=== PATIENT | male | born 1940 | race Two or more races ===

== ENCOUNTER 2017-01-05 11:55 | Inpatient (IN) | payer MEDICAID ==
[~2017-01-05] VITALS: Ht 180.3 cm; Wt 81.7 kg
[~2017-01-05 11:55] MED LIST: HYDR5CAP; LISI10TA6
[2017-01-05] MEDS ORDERED: SODIUM CHLORIDE 0.9% 1,000 ML IVB ONE (12:34)
[2017-01-05 12:53] LABS: Basophils # (auto) 0 uL; Basophils % (auto) 0.3 % (0.0-2.0); Eosinophils # (auto) 0.3 uL; Eosinophils % (auto) 4.3 % (0.0-7.0); Hematocrit 43.3 % (41.0-53.0); Hemoglobin 14.1 g/dL (13.5-17.5); Lymphocytes # (auto) 1.4 uL; Lymphocytes % (auto) 21.9 % (10.0-50.0); Mean Corpuscular Hgb Conc. 32.5 g/dL (32.0-36.0); Mean Platelet Volume 9.3 fL (7.4-10.4); Monocytes # (auto) 0.5 uL; Monocytes % (auto) 8.7 % (0.0-12.0); Neutrophils % (auto) 64.8 % (37.0-80.0); Platelet Count (auto) 243 10^3/uL (140-450); Red Cell Distribution Width 13.4 % (11.6-16.0); White Blood Cell 6.3 10^3/uL (4.4-10.8)
[2017-01-05 13:02] LABS: Albumin 3.2 g/dL (3.4-5.0); Alkaline Phosphatase 53 U/L (45-117); Anion Gap 8 (5-15); Aspartate Aminotransferase 11 U/L (15-37); Bilirubin, Total 0.8 mg/dL (0.2-1.0); Blood Urea Nitrogen 19 mg/dL (7-18); Carbon Dioxide 26 mmol/L (21-32); Chloride 109 mmol/L (98-107); GFR African American 76 mL/min; GFR Non-African American 63 mL/min; Glucose 163 mg/dL (74-106); Magnesium 2.4 mg/dL (1.6-2.6); Potassium 3.7 mmol/L (3.5-5.1); Sodium 143 mmol/L (136-145); Total Protein 6.3 g/dL (6.4-8.2)
[2017-01-05 13:33] LABS: Partial Thromboplastin Time 27.4 sec (22.64-33.71); Prothrombin Time 10.8 sec (9.37-12.3)
[2017-01-05] MEDS ORDERED: DEXTROSE (50%) 50ML SYRG IV PRN (15:00)
[2017-01-05] MEDS ORDERED: MORPHINE SULF INJ 2 MG/ML SYRINGE 1ML IV PRN ×2 (15:00)
[2017-01-05] MEDS ORDERED: TEMAZEPAM 15 MG CAP PO PRN (15:00)
[2017-01-05] MEDS ORDERED: ACETAMINOPHEN 500 MG TAB PO PRN (15:00)
[2017-01-05] MEDS ORDERED: PROMETHAZINE HCL 25 MG/ML 1ML IV PRN (15:00)
[2017-01-05] MEDS ORDERED: HYDROcodone-ACET 5/325MG TAB PO PRN (15:00)
[2017-01-05] MEDS ORDERED: LACTULOSE 20Gm/30ML SOLN PO PRN (15:00)
[2017-01-05] MEDS ORDERED: LORazepam 0.5 MG TAB PO PRN (15:00)
[2017-01-05] MEDS ORDERED: NITROGLYCERIN 0.4 MG SL TAB SL PRN (15:00)
[2017-01-05] MEDS ORDERED: PANTOPRAZOLE 40 MG TAB PO ONE (15:15)
[2017-01-05] MEDS ORDERED: ASPirin 81 mg TAB PO ONE (15:15)
[2017-01-05] MEDS ORDERED: LISINOPRIL 10 MG TAB PO ONE (15:15)
[2017-01-05] MEDS ORDERED: HCTZ25T PO (15:49)
[2017-01-05] MEDS ORDERED: ASPI-231 PO (15:49)
[2017-01-05] MEDS ORDERED: GABA-339 PO (15:49)
[2017-01-05] MEDS ORDERED: DOCU100T15 PO (15:49)
[2017-01-05] MEDS ORDERED: HYDR-4069 PO (15:49)
[2017-01-05] MEDS ORDERED: CHOL100039 PO (15:49)
[2017-01-05] MEDS ORDERED: AML5T PO (15:49)
[2017-01-05] MEDS ORDERED: LOSA50TA6 PO (15:49)
[2017-01-05 16:36] LABS: Temperature: 23.7 C (20.0-25.0)
[2017-01-05] MEDS ORDERED: LORazepam 2MG/ML-1ML VIAL IV PRN (17:00)
[2017-01-05] MEDS: ENOXAPARIN SOD 40 MG/0.4 ML SYRINGE SC SCH (17:07)
[2017-01-05] MEDS: ACCU-CHEK COMFORT CURVE STRIP VI SCH (18:33)
[2017-01-05 20:13] VITALS: BP 148/60
[2017-01-05 21:30] LABS: Urine Bilirubin Negative (Negative); Urine Blood Negative /uL (Negative); Urine Color Yellow (Yellow); Urine Glucose Normal (Normal); Urine Hyaline Cast MOD /lpf (0 - 2); Urine Ketone Negative (Negative); Urine Mucus FEW (None Seen); Urine Nitrite Negative (Negative); Urine RBC <1 /hpf (0 - 3); Urine Squamous Epithelial Cell FEW /hpf (<5)
[2017-01-05] MEDS: ATORVASTATIN 20 MG TAB PO SCH (22:24)
[2017-01-05 23:05] VITALS: BP 148/60
[2017-01-06 05:12] VITALS: BP 135/66
[2017-01-06 06:08] LABS: Cholesterol 111 mg/dL (< 200); HDL Cholesterol 35 mg/dL (40-59); LDL Cholesterol 74 mg/dL (< 100); Triglycerides 95 mg/dL (< 150)
[2017-01-06] MEDS: ACCU-CHEK COMFORT CURVE STRIP VI SCH ×4 (06:27→18:02)
[2017-01-06] MEDS: LISINOPRIL 10 MG TAB PO SCH (06:28)
[2017-01-06 08:00] VITALS: BP 151/66
[2017-01-06] MEDS: ASPirin 81 mg TAB PO SCH (09:04)
[2017-01-06] MEDS: ENOXAPARIN SOD 40 MG/0.4 ML SYRINGE SC SCH (09:04)
[2017-01-06] MEDS: PANTOPRAZOLE 40 MG TAB PO SCH (09:04)
[2017-01-06 13:00] VITALS: BP 158/69
[2017-01-06 17:00] VITALS: BP 158/78
[2017-01-06] MEDS ORDERED: IOHEXOL 350 MG/ML 100ML IJ ONE (17:37)
[2017-01-06 21:30] VITALS: BP_SYST 146; BP_SYST 152; BP_SYST 156; BP_DIAS 63; BP_DIAS 71; BP_DIAS 74
[2017-01-06] MEDS: ATORVASTATIN 20 MG TAB PO SCH (21:52)
[2017-01-07] VITALS (7 sets, daily range): BP systolic 132–181; BP diastolic 60–67
[2017-01-07] MEDS: ACCU-CHEK COMFORT CURVE STRIP VI SCH ×3 (00:23→11:17)
[2017-01-07] MEDS: LISINOPRIL 10 MG TAB PO SCH (06:14)
[2017-01-07] MEDS: ENOXAPARIN SOD 40 MG/0.4 ML SYRINGE SC SCH (09:40)
[2017-01-07] MEDS: ASPirin 81 mg TAB PO SCH (09:40)
[2017-01-07] MEDS: PANTOPRAZOLE 40 MG TAB PO SCH (09:40)
== END 2017-01-07 14:35 | disposition home or self-care (01) | DRG 204 ==
LOC: EDBD 11:55 → ER 11:57 → OBSVTOIN 12:35 → OVERFLOW 12:35 → TELE 12:36 → TELE-EAST 20:15
PROVIDERS: ADMIT Family Medicine; ATTEND Hospitalist
DX: R55 Syncope and collapse (principal); I11.9 Hypertensive heart disease without heart failure; I49.3 Ventricular premature depolarization; R73.9 Hyperglycemia, unspecified; Z90.49 Acquired absence of other specified parts of digestive tract; Z82.49 Family history of ischemic heart disease and other diseases of the circulatory system; Z83.3 Family history of diabetes mellitus; Z71.89 Other specified counseling
CPT/HCPCS: 36415; 70450; 70551; 71020; 71275; 80053; 80061; 81001; 82550; 82607; 82746; 82962; 83036; 83735; 84443; 84484; 85025; 85379; 85610; 85652; 85730; 93005; 93306; 93886; 94761; 95819; G0378

== ENCOUNTER 2017-10-10 07:04 | Emergency (ER) | payer MEDICAID ==
[~2017-10-10] VITALS: Ht 162.6 cm; Wt 79.4 kg
[~2017-10-10 07:04] MED LIST changes: +AML5T PO; +ASPI-231 PO; +CHOL100039 PO; +DOCU100T15 PO; +GABA-339 PO; -HYDR5CAP; -LISI10TA6; +LOSA50TA6 PO
[2017-10-10 08:01] LABS: Basophils # (auto) 0 uL; Basophils % (auto) 0.3 % (0.0-2.0); Eosinophils # (auto) 0.1 uL; Eosinophils % (auto) 1.1 % (0.0-7.0); Hematocrit 47.7 % (41.0-53.0); Lymphocytes % (auto) 9.9 % (10.0-50.0); Mean Corpuscular Hemoglobin 29.1 pg (28.0-32.0); Mean Corpuscular Hgb Conc. 33.6 g/dL (32.0-36.0); Mean Corpuscular Volume 86.6 fL (80.0-100.0); Monocytes # (auto) 0.8 uL; Monocytes % (auto) 8.5 % (0.0-12.0); Neutrophils # (auto) 7.7 uL; Neutrophils % (auto) 80.2 % (37.0-80.0); Nucleated Red Blood Cells % 0.1 %; Platelet Count (auto) 201 10^3/uL (140-450); Red Blood Cells 5.52 10^6/uL (4.5-5.90); Red Cell Distribution Width 14.1 % (11.8-14.3); White Blood Cell 9.6 10^3/uL (4.4-10.8)
[2017-10-10 08:18] LABS: Albumin 3.6 g/dL (3.4-5.0); BUN/Creatinine Ratio 23.4; Bilirubin, Total 2.1 mg/dL (0.2-1.0); Calcium 8.5 mg/dL (8.5-10.1); Potassium 4.1 mmol/L (3.5-5.1); Total Protein 7.1 g/dL (6.4-8.2)
[2017-10-10] MEDS ORDERED: KETOROLAC TROMETH 60MG/2ML VIAL IM ONE (09:15)
[2017-10-10] MEDS ORDERED: KETOROLAC TROMETH 30 MG/ML 1ML VIAL IV ONE (09:30)
[2017-10-10 10:37] VITALS: BP 173/90
== END 2017-10-10 10:41 | disposition home or self-care (01) ==
LOC: ER 07:04
DX: M54.2 Cervicalgia (principal); R51 Headache; M79.1 Myalgia; I10 Essential (primary) hypertension; Z79.82 Long term (current) use of aspirin; Z79.899 Other long term (current) drug therapy
CPT/HCPCS: 36415; 72125; 80053; 85025; 93005; 96374; 99285; J1885

== ENCOUNTER 2017-10-13 13:06 | Emergency (ER) | payer MEDICAID ==
[~2017-10-13] VITALS: Ht 175.3 cm; Wt 79.4 kg
[2017-10-13 15:17] VITALS: BP 198/80
== END 2017-10-13 15:33 | disposition home or self-care (01) ==
LOC: ER 13:06
DX: M54.2 Cervicalgia (principal); M19.90 Unspecified osteoarthritis, unspecified site; I10 Essential (primary) hypertension; Z76.0 Encounter for issue of repeat prescription